=== PATIENT | male | born 1945 | race Caucasian/White ===

== ENCOUNTER 2017-02-18 05:59 | Emergency (ER) | payer MEDICARE, BC ==
[~2017-02-18] VITALS: Ht 177.8 cm; Wt 77.3 kg
[~2017-02-18 05:59] MED LIST: ASPI81TA3 GTB
[2017-02-18] MEDS ORDERED: ALBUTEROL 0.083% (NEB) 2.5 MG/3 ML AMP NEB STA (06:06)
[2017-02-18] MEDS ORDERED: IPRATROPIUM (NEB) 0.5 MG/2.5 ML AMP NEB STA (06:06)
[2017-02-18 06:08] VITALS: Ht 177.8 cm; Wt 77.3 kg
[2017-02-18] MEDS ORDERED: LINA145C PO (06:29)
[2017-02-18] MEDS ORDERED: ATOR20TA38 PO (06:29)
[2017-02-18] MEDS ORDERED: DONE5TAB32 PO (06:29)
[2017-02-18] MEDS ORDERED: RANI150T5 PO (06:29)
[2017-02-18] MEDS ORDERED: TAMS0.4C2 PO (06:29)
[2017-02-18] MEDS ORDERED: LIPA1CAP18 PO (06:29)
--- NOTE | 2017-02-18 06:30 | ERA ---
ER Documentation Chief Complaint Date/Time DATE: 02/18/17 TIME: 06:25 Chief Complaint ANDREA [id number] from home,SOB after argument w/ family,hx anxiety HPI This is a 71-year-old male who presents the emergency room complaining of shortness of breath. There is a language barrier making history somewhat difficult. An Bulgarian hat measurer was used. We have received several different reports. The first report from EMS was the patient was sitting comfortably on his couch and started to have shortness of breath. A secondary count reports that the patient was in a verbal argument with a family member and started to become short of breath after that. During my conversation the patient states that he had insomnia was having difficulty sleeping and then had difficulty breathing. The patient states symptoms are somewhat improving. He denies any chest pain, no back pain, no pleuritic pain. He recently started antibiotics and steroids for a dental infection. He denies any fevers or chills. No lower extremity swelling or calf pain. ROS All systems reviewed and are negative except as per history of present illness. Medications Home Meds Active Scripts Albuterol Sulfate* (Ventolin HFA*) 18 Gm Hfa.aer.ad, 2 PUFF INHALATION Q4H, #1 INHALER Prov:KRISTI RYAN MD 02/18/17 Reported Medications Linaclotide (LINZESS) 145 Mcg Capsule, 145 MCG PO DAILY, #30 CAP 02/18/17 Mzbyod-Kzjhkkje-Dntbwil* (Zenpep DR* 20,000) 20,000 L-68,000-109,000 Unit Capsule.dr, 1 CAP PO WITH MEALS, CAP 02/18/17 Atorvastatin Calcium* (Atorvastatin Calcium*) 20 Mg Tablet, 20 MG PO QHS, #30 TAB 02/18/17 Donepezil* (Aricept*) 5 Mg Tablet, 5 MG PO DAILY, TAB 02/18/17 Tamsulosin Hcl* (Tamsulosin Hcl*) 0.4 Mg Cap.er.24h, 0.4 MG PO DAILY, CAP 02/18/17 Ranitidine Hcl* (Ranitidine Hcl*) 150 Mg Tablet, 150 MG PO HS, #30 TAB 02/18/17 Discontinued Reported Medications Aspirin (Aspirin) 81 Mg Chew, 81 MG GTB DAILY 03/15/13 Allergies Allergies: Coded Allergies: No Known Allergy (Unverified , 02/18/17) PMhx/Soc History of Surgery: Yes (RIGHT WRIST SURGERY, BACK SURGERY) Anesthesia Reaction: No Hx Neurological Disorder: No Hx Respiratory Disorders: No Hx Cardiac Disorders: No Hx Psychiatric Problems: Yes (ANXIETY) Hx Miscellaneous Medical Probl: Yes (HTN) Hx Alcohol Use: Yes (sometimes) Hx Substance Use: No Hx Tobacco Use: Yes (CIGARETTE 1pack/day) FmHx Family History: No diabetes Physical Exam Vitals Vital Signs Date Time Temp Pulse Resp B/P Pulse Ox O2 Delivery O2 Flow Rate FiO2 02/18/17 06:36 Nasal Cannula 2 02/18/17 06:22 74 17 94 Nasal Cannula 1.0 02/18/17 06:22 94 3.0 02/18/17 06:08 97.6 96 18 127/81 93 Physical Exam General: Well developed, well nourished, no acute distress Head: Normocephalic, atraumatic. Eyes: Pupils equally reactive, EOM intact ENT: Moist mucous membranes Neck: Supple, no lymphadenopathy Respiratory: Scant rales at right base that clears with coughing, no respiratory distress, no intercostal retractions Cardiovascular: RRR, no murmurs, rubs, or gallops Abdominal: Soft, non-tender, non-distended, no peritoneal signs : Deferred MSK: No edema, no unilateral swelling, 5/5 strength Neurologic: Alert and oriented, moving all extremities, normal speech, no focal weakness, no cerebellar signs Skin: No rash Psych: Normal mood Result Diagram: 02/18/17 0621 02/18/17 0621 Results 24 hrs Laboratory Tests Test 02/18/17 06:21 White Blood Count 13.010^3/ul Red Blood Count 4.8610^6/ul Hemoglobin 15.2g/dl Hematocrit 45.3% Mean Corpuscular Volume 93.2fl Mean Corpuscular Hemoglobin 31.3pg Mean Corpuscular Hemoglobin Concent 33.6g/dl Red Cell Distribution Width 13.9% Platelet Count 63198^3/UL Mean Platelet Volume 9.9fl Neutrophils % 61.2% Lymphocytes % 30.3% Monocytes % 7.0% Eosinophils % 0.7% Basophils % 0.3% Nucleated Red Blood Cells % 0.0/100WBC Neutrophils # 7.910^3/ul Lymphocytes # 3.910^3/ul Monocytes # 0.910^3/ul Eosinophils # 0.110^3/ul Basophils # 0.010^3/ul Nucleated Red Blood Cells # 0.010^3/ul Prothrombin Time 11.5Sec Prothrombin Time Ratio 0.9 INR International Normalized Ratio 0.84 Activated Partial Thromboplast Time 26.7Sec Sodium Level 146mmol/L Potassium Level 3.4mmol/L Chloride Level 104mmol/L Carbon Dioxide Level 30mmol/L Anion Gap 15 Blood Urea Nitrogen 10mg/dl Creatinine 0.80mg/dl Glucose Level 97mg/dl Calcium Level 9.3mg/dl Troponin I 0.016ng/ml B-Type Natriuretic Peptide 482PG/ML Current Medications Medications (Trade) Dose Ordered Sig/Heydi Route PRN Reason Start Time Stop Time Status Last Admin Dose Admin Albuterol (Proventil 0.083% (Neb)) 5 mg ONCE STAT NEB 02/18/17 06:06 02/18/17 06:14 DC 02/18/17 06:22 Ipratropium Elim (Atrovent 0.02% (Neb)) 0.5 mg ONCE STAT NEB 02/18/17 06:06 02/18/17 06:14 DC 02/18/17 06:22 Procedures/MDM EKG, MONITORS, & DIAGNOSTIC IMAGING: EKG: I reviewed and interpreted a 12-lead EKG. Rhythm: Normal sinus rhythm Ectopy: None Intervals: No abnormalities ST segments: No elevations or depressions T waves: No contiguous inversions Repeat EKG EKG: I reviewed and interpreted a 12-lead EKG. Rhythm: Normal sinus rhythm Ectopy: None Intervals: No abnormalities ST segments: No elevations or depressions T waves: No contiguous inversions Chest x-ray: I reviewed and interpreted a 1 view of the chest Mediastinum: No enlargement Cardiac silhouette: No cardiomegaly Airspace: Clear lung styles bilaterally without evidence of pneumothorax Bones: No evidence of fracture LAB INTERPRETATION: White count of 13 likely secondary to steroids, nonspecific BnP, negative troponin MEDICAL DECISION MAKING: Unclear etiology as to the patient's shortness of breath. It seems to have an emotional stress trigger that could represent anxiety. However the patient's oxygen saturation is hovering around 90-92%. The patient has a prior echocardiogram in 2012 that showed a normal EF. He has no evidence of CHF. He has no signs or symptoms concerning for pulmonary embolism with no risk factors. Consider possible pneumonia. Given the very difficult history and slight hypoxia broader workup was initiated including labs, EKG, chest x-ray. The patient states in the past he has had the symptoms that have been improved with an inhaler. Patient may have underlying COPD. ER COURSE: The patient is improved after breathing treatment. After further conversation with the family member it appears the patient is a smoker. This is reassuring and likely the etiology of the patient's slightly low oxygen saturation. The family member states that the patient gets like this from time to time and that he has returned to baseline. The patient is breathing comfortably. The patient is currently on steroids. I will add an inhaler to his regimen. Likely undiagnosed COPD. No evidence of COPD exacerbation given no productive sputum, no indication to change antibiotics. Patient is currently taking amoxicillin for dental infection. No evidence of ACS, PE, heart failure. The patient can be safely discharged with close primary care follow-up. I kept the patient and/or family informed of laboratory and diagnostic imaging results throughout the emergency room course. DISPOSITION PLAN: We discussed follow up with the patient's primary care doctor within 24 to 48 hours as needed. We also discussed return to the emergency room for worsening symptoms or worsening condition. Outpatient referral: [None required] Discharge Medications: Albuterol MDI Departure Diagnosis: Primary Impression: Shortness of breath Condition: KRISTI Ryan MD Feb 18, 2017 06:29
--- NOTE | 2017-02-18 06:49 | RADRPT ---
PROCEDURE: XR Chest. CLINICAL INDICATION: Chest Pain. TECHNIQUE: Portable single view of the chest COMPARISON: 03/14/2013 FINDINGS: Top normal heart size. Aortic calcification again seen. No acute infiltrate, pleural effusion, or overt congestive heart failure. No bony abnormality is seen. IMPRESSION: No definite acute pulmonary disease. Aortic atherosclerosis. RPTAT: HLBE Hortencia Steven Physician Date Time Electronically viewed and signed by Hortencia Steven, Physician on 02/18/2017 06:49 LE/
[2017-02-18 06:51] LABS: BASOPHILS % 0.3 % (0.0-2.0); EOSINOPHILS # 0.1 10^3/ul (0.0-0.5); EOSINOPHILS % 0.7 % (0.0-7.0); HEMATOCRIT 45.3 % (42.0-52.0); HEMOGLOBIN 15.2 g/dl (14.0-18.0); LYMPHOCYTES # 3.9 10^3/ul (0.8-2.9); LYMPHOCYTES % 30.3 % (15.0-51.0); MEAN CORPUSCULAR HEMOGLOBIN 31.3 pg (29.0-33.0); MEAN CORPUSCULAR HGB CONC 33.6 g/dl (32.0-37.0); MEAN CORPUSCULAR VOLUME 93.2 fl (82.0-101.0); MEAN PLATELET VOLUME 9.9 fl (7.4-10.4); MONOCYTE # 0.9 10^3/ul (0.3-0.9); NEUTROPHIL # 7.9 10^3/ul (1.6-7.5); NEUTROPHILS % 61.2 % (39.0-77.0); PLATELET COUNT 344 10^3/UL (140-415); RED BLOOD COUNT 4.86 10^6/ul (4.70-6.10); RED CELL DISTRIBUTION WIDTH 13.9 % (11.5-14.5)
[2017-02-18 07:11] LABS: INR 0.84; PARTIAL THROMBOPLASTIN TIME 26.7 Sec (25.0-35.0); PROTIME 11.5 Sec (12.2-14.2); PT RATIO 0.9
[2017-02-18 07:14] LABS: CALCIUM 9.3 mg/dl (8.4-10.2); CREATININE 0.8 mg/dl (0.61-1.24); POTASSIUM 3.4 mmol/L (3.5-5.1)
[2017-02-18 07:21] LABS: TROPONIN-I 0.016 ng/ml (0.00-0.12)
[2017-02-18] MEDS ORDERED: ALBU18HF INHALATION (07:33)
[2017-02-18 07:56] VITALS: BP 134/65; PULSE 89; RESP 16
== END 2017-02-18 08:15 | disposition home or self-care (01) ==
LOC: E/R 05:59
DX: R06.02 Shortness of breath (principal); I10 Essential (primary) hypertension; F17.210 Nicotine dependence, cigarettes, uncomplicated; Z79.82 Long term (current) use of aspirin
CPT/HCPCS: 36415; 71010; 80048; 83880; 84484; 85025; 85610; 85730; 93005; 94664

== ENCOUNTER 2018-07-05 16:52 | Emergency (ER) | END 2018-07-05 19:25 | disposition home or self-care (01) ==

== ENCOUNTER 2018-07-20 12:58 | Emergency (ER) | END 2018-07-20 16:50 | disposition home or self-care (01) ==